=== PATIENT | female | born 1990 | race Caucasian/White ===

== ENCOUNTER 2017-02-05 14:34 | Emergency (ER) | payer SELFPAY ==
[2017-02-05 14:41] VITALS: BP 132/89
--- NOTE | 2017-02-05 14:51 | UC ---
Ear Complaint HPI - HPI Summary HPI Summary: 26 YEAR OLD FEMALE PRESENTS WITH COMPLAINS OF LEFT EAR PAIR. - History of Current Complaint Chief Complaint: UCEar Stated Complaint: LFT EAR PAIN/ORAL PAIN Time Seen by Provider: 02/05/17 14:51 Hx Obtained From: Patient Hx Last Menstrual Period: 01/31/17 Onset/Duration: Sudden Onset Severity Initially: Moderate Severity Currently: Moderate Pain Scale Used: 0-10 Numeric - 6 Alleviating Factors: Nothing Associated Signs/Symptoms: Positive: URI Symptoms Related History: Seasonal Allergies - Allergies/Home Medications Allergies/Adverse Reactions: Allergies Allergy/AdvReac Type Severity Reaction Status Date / Time No Known Allergies Allergy Verified 02/05/17 14:41 PMH/Surg Hx/FS Hx/Imm Hx Previously Healthy: Yes - Surgical History Surgical History: None - Family History Known Family History: Positive: Hypertension - Social History Alcohol Use: Rare Substance Use Type: None Smoking Status (MU): Heavy Every Day Tobacco Smoker Type: Cigarettes Amount Used/How Often: 1 ppd Length of Time of Smoking/Using Tobacco: 14 yr Have You Smoked in the Last Year: Yes Household Exposure Type: Cigarettes - Immunization History Most Recent Tetanus Shot: unknown Review of Systems Constitutional: Negative Skin: Negative Eyes: Negative ENT: Ear Ache Respiratory: Negative Cardiovascular: Negative Gastrointestinal: Negative Genitourinary: Negative Motor: Negative Neurovascular: Negative Musculoskeletal: Negative Neurological: Negative Psychological: Negative All Other Systems Reviewed And Are Negative: Yes Physical Exam Triage Information Reviewed: Yes Appearance: Well-Appearing Vital Signs: Initial Vital Signs Temp 37.6 C 02/05/17 14:36 Pulse 96 02/05/17 14:36 Resp 16 02/05/17 14:36 BP 132/89 02/05/17 14:36 Pulse Ox 100 02/05/17 14:36 Eye Exam: Normal Eyes: Positive: Conjunctiva Inflamed ENT Exam: Normal ENT: Positive: Other: - LEFT MIDDLE EAR MODERATE EFFUSION Dental Exam: Normal Neck exam: Normal Neck: Positive: 1 Respiratory Exam: Normal Cardiovascular Exam: Normal Abdominal Exam: Normal Musculoskeletal Exam: Normal Neurological Exam: Normal Psychological Exam: Normal Skin Exam: Normal Ear Complaint Course/Dx - Differential Dx/Diagnosis Provider Diagnoses: LEFT MIDDLE EFFUSION. LEFT EUSTACIAN TUBE DYSFUNCTION Discharge - Discharge Plan Condition: Stable Disposition: HOME Patient Education Materials: Sinusitis (ED), Earache (ED) Referrals: MAXWELL Arredondo [Primary Care Provider] -
== END 2017-02-05 15:31 | disposition home or self-care (01) ==
LOC: UCCORT 14:34
DX: H65.192 Other acute nonsuppurative otitis media, left ear (principal); H69.92 Unspecified Eustachian tube disorder, left ear
CPT/HCPCS: 99212; G0463

== ENCOUNTER 2017-07-28 09:40 | Emergency (ER) | payer OTHER ==
[2017-07-28 10:35] VITALS: BP 141/98
--- NOTE | 2017-07-28 12:38 | UC ---
Abdominal Pain Female HPI - HPI Summary HPI Summary: This is an otherwise healthy 26 yo female who presents with c/o abd pain and nausea. She has been symptomatic for several weeks. She has been nauseous nearly constantly and occasionally vomits. She has a burning sensation in her chest when laying flat. Her symptoms are worst after eating fatty foods. She uses NSAIDs freq and drinks excessive amounts of caffeine. No hematemesis or coffee ground emesis. She is not sexually active, no vaginal complaints. No associated diarrhea or fever. - History of Current Complaint Chief Complaint: UCAbdominalPain Stated Complaint: NAUSEA, VOMITING Hx Last Menstrual Period: now Pain Intensity: 6 Allergies/Adverse Reactions: Allergies Allergy/AdvReac Type Severity Reaction Status Date / Time No Known Allergies Allergy Verified 07/28/17 10:35 PMH/Surg Hx/FS Hx/Imm Hx Previously Healthy: Yes - Surgical History Surgical History: None - Family History Known Family History: Positive: Hypertension - Social History Alcohol Use: Rare Substance Use Type: None Smoking Status (MU): Heavy Every Day Tobacco Smoker Type: Cigarettes Amount Used/How Often: 1 ppd Length of Time of Smoking/Using Tobacco: 14 yr Have You Smoked in the Last Year: Yes Household Exposure Type: Cigarettes - Immunization History Most Recent Tetanus Shot: unknown Review of Systems Constitutional: Negative Skin: Negative Eyes: Negative ENT: Negative Respiratory: Negative Cardiovascular: Negative Gastrointestinal: Abdominal Pain, Vomiting, Nausea Genitourinary: Negative Motor: Negative Neurovascular: Negative Musculoskeletal: Negative Neurological: Negative Psychological: Negative Is Patient Immunocompromised?: No All Other Systems Reviewed And Are Negative: Yes Physical Exam Triage Information Reviewed: Yes Appearance: Well-Appearing Vital Signs: Initial Vital Signs Temp 98.2 F 07/28/17 10:30 Pulse 91 07/28/17 10:30 Resp 16 07/28/17 10:30 BP 141/98 07/28/17 10:30 Pulse Ox 100 07/28/17 10:30 Vital Signs Reviewed: Yes ENT Exam: Normal Dental Exam: Normal Neck exam: Normal Respiratory: Positive: Lungs clear. Negative: Crackles, Rhonchi, Wheezing Cardiovascular: Positive: RRR, No Murmur Abdomen Description: Positive: Soft, Other: - RUQ TTP. Negative: CVA Tenderness (R), CVA Tenderness (L), Distended Neurological: Positive: Alert Psychological Exam: Normal Skin Exam: Normal Abd Pain Female Course/Dx - Course Course Of Treatment: This is an otherwise healthy 26 yo female who presents with c/o abd pain and nausea. Symptoms may represent GERD/gastritis and/or gallbladder disease. Recommend use of an H2 deshawn for 2 weeks and if no improvement GB US. Patient will work to establish care with PCP in the area for further followup. - Differential Dx/Diagnosis Differential Diagnosis: Gall Bladder Disease, Peptic Ulcer Disease, Renal Colic Provider Diagnoses: 1. Abd pain/nausea - suspected gastritis Discharge - Discharge Plan Condition: Stable Disposition: HOME Prescriptions: raNITIdine HCl [Zantac] 150 mg PO BID #60 tablet Patient Education Materials: Gastroesophageal Reflux Disease (DC) Forms: *Work Release Referrals: No Primary Care Phys,NOPCP [Primary Care Provider] - Additional Instructions: Instructions: 1. Please take Zantac twice daily as prescribed 2. Establish with a PCP in the area for a gallbladder US and surgeon referral if your symptoms do not improve 3. Reduce your caffiene intake 4. Stop taking ibuprofen
== END 2017-07-28 12:34 | disposition home or self-care (01) ==
LOC: UCCORT 09:40
DX: R11.2 Nausea with vomiting, unspecified (principal); R10.9 Unspecified abdominal pain
CPT/HCPCS: 99212; G0463

== ENCOUNTER 2017-09-27 08:16 | Emergency (ER) | payer OTHER ==
[2017-09-27 08:34] VITALS: BP 134/84
--- NOTE | 2017-09-27 08:43 | UC ---
Eye Complaint HPI - HPI Summary HPI Summary: bilateral eye redness and discharge x 3 days getting worse today no eye pain , no photophobia, no change in vision - History of Current Complaint Chief Complaint: UCEye Stated Complaint: BILATERAL EYE COMPLAINT Time Seen by Provider: 09/27/17 08:29 Hx Obtained From: Patient Hx Last Menstrual Period: 09/14/17 Onset/Duration: Gradual Onset, Lasting Days - 3, Still Present Severity Initially: Moderate Severity Currently: Moderate Pain Intensity: 0 Location of Injury: Conjunctiva Aggravating Factor(s): Nothing Alleviating Factor(s): Nothing Associated Signs And Symptoms: Positive: Drainage (Purulent) - Allergies/Home Medications Allergies/Adverse Reactions: Allergies Allergy/AdvReac Type Severity Reaction Status Date / Time No Known Allergies Allergy Verified 09/27/17 08:31 PMH/Surg Hx/FS Hx/Imm Hx Previously Healthy: Yes - Surgical History Surgical History: None - Family History Known Family History: Positive: Hypertension - Social History Alcohol Use: None Substance Use Type: None Smoking Status (MU): Heavy Every Day Tobacco Smoker Type: Cigarettes Amount Used/How Often: 1 ppd Length of Time of Smoking/Using Tobacco: 14 yr Have You Smoked in the Last Year: Yes Household Exposure Type: Cigarettes - Immunization History Most Recent Tetanus Shot: unknown Review of Systems Constitutional: Negative Skin: Negative Eyes: Drainage, Eye Redness ENT: Negative Respiratory: Negative Cardiovascular: Negative Gastrointestinal: Negative Is Patient Immunocompromised?: No All Other Systems Reviewed And Are Negative: Yes Physical Exam Triage Information Reviewed: Yes Appearance: Well-Appearing, No Pain Distress, Well-Nourished Vital Signs: Initial Vital Signs Temp 98.3 F 09/27/17 08:29 Pulse 91 09/27/17 08:29 Resp 14 09/27/17 08:29 BP 134/84 09/27/17 08:29 Pulse Ox 100 09/27/17 08:29 Vital Signs Reviewed: Yes Eyes: Positive: Conjunctiva Inflamed. Negative: Discharge ENT: Positive: Normal ENT inspection, Hearing grossly normal, Pharynx normal Neck: Positive: Supple, Nontender, No Lymphadenopathy Respiratory: Positive: Chest non-tender, Lungs clear, Normal breath sounds, No respiratory distress Cardiovascular: Positive: RRR, No Murmur, Pulses Normal Skin Exam: Normal Eye Complaint Course/Dx - Differential Dx/Diagnosis Provider Diagnoses: conjunctivitis Discharge - Sign-Out/Discharge Documenting (check all that apply): Discharge/Admit/Transfer - Discharge Plan Condition: Stable Disposition: HOME Prescriptions: Sulfacetamide Sodium [Bleph-10] 1 drop OP Q6HR #1 bottle Patient Education Materials: Conjunctivitis (ED) Forms: *Work Release Referrals: No Primary Care Phys,NOPCP [Primary Care Provider] - If Needed - Billing Disposition and Condition Condition: STABLE Disposition: HOME
== END 2017-09-27 08:47 | disposition home or self-care (01) ==
LOC: UCCORT 08:16
DX: H10.9 Unspecified conjunctivitis (principal); F17.210 Nicotine dependence, cigarettes, uncomplicated
CPT/HCPCS: 99212; G0463

== ENCOUNTER 2018-03-08 09:26 | Emergency (ER) | payer MEDICAID, OTHER ==
[2018-03-08 10:07] VITALS: BP 127/88
--- NOTE | 2018-03-08 10:54 | UC ---
Dental HPI - HPI Summary HPI Summary: 27-year-old woman comes in with complaint of dental pain. Been going on for about 3 days. His left lower molar. She has an appointment with her dentist next week. The patient has been getting worse and she has not been able to sleep overnight. She didn't taking ibuprofen and Tylenol without relief. No fevers or chills. - History of Current Complaint Chief Complaint: UCDentalProblem Stated Complaint: DENTAL COMPLAINT Time Seen by Provider: 03/08/18 10:46 Hx Last Menstrual Period: 02/22/18 Pain Intensity: 10 - Allergies/Home Medications Allergies/Adverse Reactions: Allergies Allergy/AdvReac Type Severity Reaction Status Date / Time No Known Allergies Allergy Verified 03/08/18 10:03 Home Medications: Home Medications Acetaminophen [Tylenol Extra Strength] 2 tab PO Q6H PRN 03/08/18 [History Confirmed 03/08/18] Ibuprofen TAB* [Motrin TAB* 600 MG] 600 mg PO Q6H PRN 03/08/18 [History Confirmed 03/08/18] PMH/Surg Hx/FS Hx/Imm Hx - Additional Past Medical History Additional PMH: Patient gets colonoscopies every 5 years due to her father passing away from colon cancer Previously Healthy: Yes - Surgical History Surgical History: None - Family History Known Family History: Positive: Hypertension Family History: Her father from colon cancer - Social History Alcohol Use: None Substance Use Type: None Smoking Status (MU): Heavy Every Day Tobacco Smoker Type: Cigarettes Amount Used/How Often: 1 ppd Length of Time of Smoking/Using Tobacco: 14 yr Have You Smoked in the Last Year: Yes Household Exposure Type: Cigarettes - Immunization History Most Recent Tetanus Shot: unknown Review of Systems Constitutional: Negative Skin: Negative Eyes: Negative ENT: Dental Pain Respiratory: Negative Cardiovascular: Negative Gastrointestinal: Negative Motor: Negative Neurovascular: Negative Musculoskeletal: Negative Neurological: Negative Psychological: Negative Is Patient Immunocompromised?: No All Other Systems Reviewed And Are Negative: Yes Physical Exam Triage Information Reviewed: Yes Appearance: Well-Appearing, Well-Nourished, Pain Distress - MILD Vital Signs: Initial Vital Signs Temp 98 F 03/08/18 10:00 Pulse 101 03/08/18 10:00 Resp 18 03/08/18 10:00 BP 127/88 03/08/18 10:00 Pulse Ox 98 03/08/18 10:00 Vital Signs Reviewed: Yes Eye Exam: Normal Eyes: Positive: Conjunctiva Clear ENT: Positive: Pharynx normal Dental: Positive: Other: - Left lower molar is tender to palpation surrounding gingival swelling. Neck exam: Normal Neck: Positive: Supple Respiratory Exam: Normal Respiratory: Positive: Lungs clear, Normal breath sounds, No respiratory distress Cardiovascular Exam: Normal Cardiovascular: Positive: RRR Musculoskeletal Exam: Normal Musculoskeletal: Positive: Strength Intact, ROM Intact Neurological Exam: Normal Neurological: Positive: Alert Psychological Exam: Normal Psychological: Positive: Age Appropriate Behavior Skin Exam: Normal Dental Complaint Course/Dx - Differential Dx/Diagnosis Provider Diagnoses: DENTAL INFECTION AND PAIN Discharge - Sign-Out/Discharge Documenting (check all that apply): Patient Departure All imaging exams completed and their final reports reviewed: No Studies - Discharge Plan Condition: Stable Disposition: HOME Prescriptions: Clindamycin Cap(NF) [Clindamycin Cap 300 mg Cap(NF)] 300 mg PO TID #30 cap HYDROcodone/ACETAMIN 5-325 MG* [Carson 5-325 TAB*] 1 tab PO Q4H PRN #15 tab MDD 6 PRN Reason: Pain Patient Education Materials: Toothache (ED) Referrals: [facility] [place] [facility] [Outside] Additional Instructions: FOLLOW UP WITH YOUR DENTIST. GET RECHECKED FOR ANY WORSENING OF YOUR CONDITION OR QUESTIONS OR CONCERNS. - Billing Disposition and Condition Condition: STABLE Disposition: Home
== END 2018-03-08 10:58 | disposition home or self-care (01) ==
LOC: UCCORT 09:26
DX: K04.7 Periapical abscess without sinus (principal); F17.210 Nicotine dependence, cigarettes, uncomplicated
CPT/HCPCS: 99212; G0463

== ENCOUNTER 2018-05-10 18:06 | Emergency (ER) | payer MEDICAID, OTHER ==
--- OUTSIDE RECORDS SUMMARY | 2018-05-10 18:28 | XMS REPORT | Continuity of Care Document ---
:1990 External Reference #:[id number] Author Name Palomo Juarez M.D. Address [address] [facility] [address] [place] [address] Care Team Providers Name Role Phone Palomo Juarez M.D. Care Team Information C S S Representative Unavailable Payers Type Date Identification Numbers Payment Provider Subscriber Policy Number: [id number] Joceline Zambrano PayID: [id number] [address] [place] [address] Effective: 2018 Policy Number: Medicaid/[facility] Joceline Zambrano [id number] PayID: [id number] [address] [place] [address] Advance Directives Description No Information Available Problems Description No Information Family History Date Family Member(s) Problem(s) Comments General Cancer General Diabetes Father due to Colon Cancer () Mother Diabetes Children None Siblings 2 Grandchildren None Social History Type Date Description Comments Sex Unknown Marital Status Legal Status: Work Status Full-Time Employment ETOH Use Rarely consumes alcohol Tobacco Use Start: Unknown Heavy tobacco smoker (more than 10 cigarettes/day) Recreational Drug Use Never Used Drugs Allergies, Adverse Reactions, Alerts Description No Known Drug Allergies Medications Medication Date Status Form Strength Qnty SIG Indications Ordering Provider Trazodone HCL 04/19/20 Active Tablets 50mg 60tabs 1-2 tab G47.00 Larry 18 by mouth Palomo Lira, every M.D. night as needed F41.9 F33.9 Clindamycin HCL Active Capsules 150mg Unknown Ibuprofen Active Tablets 800mg Unknown Clindamycin HCL Active Capsules 300mg Take One Capsule Unknown By Mouth Three Times A Day Hydrocodone-Acetaminop Active Tablets 5-325mg Take One Tablet Unknown hen By Mouth Every 4 Hours as Needed For Pain Maximum Daily Dose Six Tablets Sulfacetamide Sodium Active Solution 10% Place One Drop Unknown In Affected Eyes Every 6 Hours Medications Administered in Office Medication Date Status Form Strength Qnty SIG Indications Ordering Provider Intradermal Administered Injection Mike Juarez 018 Palomo Lira M.D. Immunizations Description No Information Available Vital Signs Date Vital Result Comment 04/19/2018 2:02pm BP Systolic 144 mmHg BP Diastolic 68 mmHg Height 64 inches 5'4" Weight 237.00 lb BMI (Body Mass Index) 40.7 kg/m2 Heart Rate 78 /min Body Temperature 97.0 F Respiratory Rate 16 /min Results Description No Information Available Procedures Date Code Description Status 04/19/2018 36213 Visual Screening Test Completed 04/19/2018 21513 Audiometry, Bekesy, Screening Completed 04/06/2014 42616931 Colonoscopy Completed Encounters Type Date Location Provider Dx Diagnosis Office Visit 04/19/2018 [facility] Pal[facility] Juarez, Z00.01 Encounter for 2:45p M.D. general adult medical exam w abnormal findings L20.9 Atopic dermatitis, unspecified J30.9 Allergic rhinitis, unspecified E66.01 Morbid (severe) obesity due to excess calories M54.5 Low back pain H52.4 Presbyopia Z11.1 Encounter for screening for respiratory tuberculosis Z80.0 Family history of malignant neoplasm of digestive organs F41.9 Anxiety disorder, unspecified F33.9 Major depressive disorder, recurrent, unspecified G47.00 Insomnia, unspecified K21.0 Gastro-esophageal reflux disease with esophagitis K30 Functional dyspepsia G43.009 Migraine w/o aura, not intractable, w/o status migrainosus Plan of Treatment Future Appointment(s):04/21/2018 3:45 pm - Palomo Juarez M.D. at [facility] - Palomo Juarez M.D.Z00.01 Encounter for general adult medical examination with abnormal findingsComments:GOOD NUTRITION /EXERCISEDENTAL/ FLOSSING/ SELF CAREDROWNING/ SUN SAFETYSEAT BELT/ DRIVING SAFETYSPORT BIKE/ HELMET USESPORTS/ INJURY PREVENTIONVIOLENCE PREVENTION/ GUN SAFETYPARENTING ADVICE"SAFE AT HOME"SEX EDUCATION/ COUNSELINGBREAST/ TESTICULAR SELF EXAMEDUCATION GOALS/ ACTIVITIESLIMIT TV/ INTERNETUSETOBACCO/ ALCOHOL/ DRUGS/ INHALANTSPEER REFUSAL SKILLSSOCIAL INTERACTIONFAMILY FUNCTIONINGSELF CONTROLDEPRESSION/ ANXIETYNEXT APPOINTMENTYEARLY PHYSICAL WELLNESS EVALUATION F /U WITH OB /EXTENSION SUPERVISOR FOR PAPL20.9 Atopic dermatitis, unspecifiedComments:SKIN CARE INSTRUCTIONS LOTION OR BABY OIL 2-3 APPLICATION PER DAYUSE MOISTURIZING SOAPAVOID PROLONGED WATER EXPOSUREAVOID USING HOT WATER IN GAHJWKP31.9 Allergic rhinitis, unspecifiedComments:INCREASE PO FLUID USE ANTIHISTAMINE PRN SECOND HAND SMOKING TTEPAJMZLN03.01 Morbid (severe) obesity due to excess caloriesComments:WT LOSS COUNCELLINGEXERCISEDIET CTVANMINHAWA93.5 Low back painComments:EXERCISE/HEAT /MESSAGEAVOID HEAVY LIFTING WT LOSSTYLENOL OR MOTRIN PRNH52.4 PresbyopiaComments:USE GLASSES/CONTACTSF/U WITH ZZVLOMWIMLEZLN82.1 Encounter for screening for respiratory tuberculosisComments:F/U IN 48-72 H FOR READING PPDZ80.0 Family history of malignant neoplasm of digestive organsComments:OBSERVEF/U WITH GI LAST COLONOSCOPY 04/2014REPEAT IN 5 GOSBKI10.9 Anxiety disorder, unspecifiedNew Medication:Trazodone HCL 50 mg - 1- 2 tab by mouth every night as neededComments:COUNCELLING AND REASSURANCE RELAXATION TECHNIQUES DISCUSSEDCOUNSELED RE: STRESSORS IN LIFE AVOID ALLENERGY/ HIGH CAFFEINE JMJFEVQ38.9 Major depressive disorder, recurrent, unspecifiedNew Medication:Trazodone HCL 50 mg - 1-2 tab by mouth every night as neededComments: COUNCELLING AND REASSURANCE RELAXATION TECHNIQUES DISCUSSED COUNSELED RE: STRESSORS IN LIFEG47.00 Insomnia, unspecifiedNew Medication:Trazodone HCL 50 mg - 1-2 tab by mouth every night as neededComments:COUNCELLING AND REASSURANCE RELAXATION TECHNIQUES DISCUSSED COUNSELED RE: STRESSORS IN LIFE TYLENOLPM OR MOTRIN PM PRNK21.0 Gastro-esophageal reflux disease with esophagitisComments: AVOID CAFFEINE, ETOH AND SPICY FOODSTUMS OR MYLANTA PRN CALL WITH PROBLEMS OR [id number] Functional dyspepsiaComments:AVOID CAFFEINE, ETOH AND SPICY FOODSTUMS OR MYLANTA PRN CALL WITH PROBLEMS OR HZEXXVURS84.009 Migraine without aura, not intractable, without status migrainosusComments:TYLENOL OR MOTRIN PRNRELAXATION/AVOID STRESSORS
--- OUTSIDE RECORDS SUMMARY | 2018-05-10 18:28 | XMS REPORT | Continuity of Care Document ---
:1990 External Reference #:[id number] Author Name Palomo Juarez M.D. Address [address] [facility] [address] [place] [address] Care Team Providers Name Role Phone Palomo Juarez M.D. Care Team Information Fuel Manager Unavailable Payers Type Date Identification Numbers Payment Provider Subscriber Policy Number: [id number] [facility] Joceline Zambrano PayID: [id number] [address] [place] [address] Effective: 2018 Policy Number: Medicaid/[facility] Joceline Zambrano [id number] [employer] PayID: [id number] [address] [place] [address] Advance Directives Description No Information Available Problems [...] cigarettes/day) Recreational Drug Use Never Used Drugs Smoking Status Reviewed: 04/20/18 Heavy tobacco smoker (more than 10 cigarettes/day) Allergies, Adverse Reactions, Alerts Description No Known Drug Allergies Medications Medication Date Status Form Strength Qnty SIG Indications Ordering Provider Trazodone HCL 04/19/20 Active Tablets 50mg 60tabs 1-2 tab G47.00 Larry, 18 by mouth Palomo Lira, every M.D. [...] Ordering Provider Intradermal Administered Injection Mike Juarez M.D. Immunizations Description No Information Available Vital Signs Date Vital Result Comment 04/21/2018 11:14am BP Systolic 130 mmHg BP Diastolic 68 mmHg Height 64 inches 5'4" Weight 237.00 lb BMI (Body Mass Index) 40.7 kg/m2 Heart Rate 74 /min Respiratory Rate 16 /min 04/19/2018 2:02pm BP Systolic 144 mmHg BP Diastolic 68 mmHg Height 64 inches 5'4" Weight 237.00 lb BMI (Body Mass Index) 40.7 kg/m2 Heart Rate 78 /min Body Temperature 97.0 F Respiratory Rate 16 /min Results Description No Information Available Procedures Date Code Description Status 04/19/2018 04524 Visual Screening Test Completed 04/19/2018 21076 Audiometry, Bekesy, Screening Completed 04/06/2014 [id number] Colonoscopy Completed Encounters Type Date Location Provider Dx Diagnosis Office Visit 04/21/2018 Palomo Aj, L20.9 Atopic dermatitis, 11:45a M.D. unspecified J30.9 Allergic rhinitis, unspecified E66.01 Morbid (severe) obesity due to excess calories M54.5 Low back pain H52.4 Presbyopia Z80.0 Family history of malignant neoplasm of digestive organs F41.9 Anxiety disorder, unspecified F33.9 Major depressive disorder, recurrent, unspecified G47.00 Insomnia, unspecified K21.0 Gastro-esophageal reflux disease with esophagitis K30 Functional dyspepsia G43.009 Migraine w/o aura, not intractable, w/o status migrainosus Z11.1 Encounter for screening for respiratory tuberculosis Office Visit 04/19/2018 2:45p Palomo Aj, Z00.01 Encounter for general M.D. adult medical exam w abnormal findings L20.9 [...] intractable, w/o status migrainosus Plan of Treatment 04/21/2018 - Palomo Juarez M.D.L20.9 Atopic dermatitis, unspecifiedComments: SKIN CARE INSTRUCTIONS LOTION OR BABY OIL 2-3 APPLICATION PER DAYUSE MOISTURIZING SOAPAVOID PROLONGED WATER EXPOSUREAVOID USING HOT WATER IN HLUIEYV50.9 Allergic rhinitis, unspecifiedComments:INCREASE PO FLUID USE ANTIHISTAMINE PRN SECOND HAND SMOKING IQAQDPXANX76.01 Morbid (severe) obesity due to excess caloriesComments:WT LOSS COUNCELLINGEXERCISEDIET NTFJYJYYPGFH67.5 Low back painComments:EXERCISE/HEAT /MESSAGEAVOID HEAVY LIFTING WT LOSSTYLENOL OR MOTRIN PRNH52.4 PresbyopiaComments:USE GLASSES/CONTACTSF/U WITH DACFNDBCCBCQLG36.0 Family history of malignant neoplasm of digestive organsComments:OBSERVEF/U WITH GI LAST COLONOSCOPY 04/2014REPEAT IN 5 KRMTCR87.9 Anxiety disorder, unspecifiedComments:COUNCELLING AND REASSURANCE RELAXATION TECHNIQUES DISCUSSEDCOUNSELED RE: STRESSORS IN LIFE AVOID ALLENERGY/ HIGH CAFFEINE YQUPDCZ48.9 Major depressive disorder, recurrent, unspecifiedComments:COUNCELLING AND REASSURANCE RELAXATION TECHNIQUES DISCUSSED COUNSELED RE: STRESSORS IN LIFEG47.00 Insomnia, unspecifiedComments:COUNCELLING AND REASSURANCE RELAXATION TECHNIQUES DISCUSSED COUNSELED RE: STRESSORS IN LIFE TYLENOLPM OR MOTRIN PM PRNK21.0 Gastro-esophageal reflux disease with esophagitisComments:AVOID CAFFEINE, ETOH AND SPICY FOODSTUMS OR MYLANTA PRN CALL WITH PROBLEMS OR [id number] Functional dyspepsiaComments:AVOID CAFFEINE, ETOH AND SPICY FOODSTUMS OR MYLANTA PRN CALL WITH PROBLEMS OR MZGAQDXZT48.009 Migraine without aura, not intractable, without status migraComments:TYLENOL OR MOTRIN PRNRELAXATION/AVOID OYAQWIZBLD54.1 Encounter for screening for respiratory tuberculosisComments:PPD NEGATIVE
--- OUTSIDE RECORDS SUMMARY | 2018-05-10 18:28 | XMS REPORT | Continuity of Care Document ---
:1990 External Reference #:[id number] Author Name Jess Peres NP Address [address] [place] [id number] Care Team Providers Name Role Phone Palomo Juarez MD Primary Care Physician Unavailable Payers Type Date Identification Numbers Payment Provider Subscriber Effective: Policy Number: [id number] [facility] Joceline Zambrano 2018 PayID: [id number] [address] [place] [address] Effective: 2018 Policy Number: [id number] Medicaid -[place] Joceline Zambrano PayID: [id number] [address] [place] [address] Advance Directives Description No Information Available Problems Date Description Provider Status Onset: 02/26/2015 Smoker Toy Sheth NP Active Family History Date Family Member(s) Problem(s) Comments General Colon Cancer Father General Breast Cancer Maternal Aunt, due to breast cancer Father age 47, colon cancer Father Hypertension Mother Alive Mother Asthma Social History Type Date Description Comments Sex Female Education Highest level completed, 12th grade Marital Status 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 Not by a professional Sun Exposure Does not use sunscreen Currently Active Patient is currently not sexually active Last Andrew 1 year ago Condom Use Occasionally Contraceptive Methods Current methods include abstinence Age 1st Andrew 13 Years Old STD's HPV, High Risk 08/2010 UNKNOWN 05/02/2018 Never E-Cigarette user Allergies, Adverse Reactions, Alerts Description No Known Drug Allergies Medications Medication Date Status Form Strength Qnty SIG Indications Ordering Provider Trazodone HCL Active Unknown 000 Nuvaring Hx Ring 0.12-0.015m 3units insert 1 Z30.44 In Whan 017 - g/24HR ring MD Zion vaginally on 018 the then remove on the of the month; each month No Active Hx Unknown Medications 016 - 017 Nuvaring Hx Ring 0.12-0.015m 3units Insert One Jess M 016 - g/24HR Vaginal Ring Larisa Vaginally WHITE WASHER PILER 016 Every Month. Remove In 3 Weeks as Directed Nuvaring Hx Ring 0.12-0.015m 3units insert Z30.40 Toy 015 - g/24HR vaginally Sheth, WHITE WASHER PILER per 016 directions Nuvaring Hx Ring 0.12-0.015m 1units insert Toy 015 - g/24HR vaginally Sheth, WHITE WASHER PILER per 016 directions Immunizations Description No Information Available Vital Signs Date Vital Result Comment 05/02/2018 2:17pm BP Systolic 138 mmHg electronic BP Diastolic 92 mmHg electronic BP Systolic Recheck 130 mmHg manual BP Diastolic Recheck 86 mmHg manual Height 64 inches 5'4" Weight 237.00 lb BMI (Body Mass Index) 40.7 kg/m2 04/18/2017 9:33am BP Systolic 122 mmHg BP Diastolic 86 mmHg Height 64 inches 5'4" Weight 223.00 lb BMI (Body Mass Index) 38.3 kg/m2 03/11/2016 10:19am BP Systolic 120 mmHg BP Diastolic 80 mmHg Height 64 inches 5'4" Weight 207.00 lb BMI (Body Mass Index) 35.5 kg/m2 02/26/2015 10:22am BP Systolic 120 mmHg BP Diastolic 80 mmHg Height 64 inches 5'4" Weight 199.00 lb BMI (Body Mass Index) 34.2 kg/m2 Last Menstrual Period [id number] Results Test Date Facility Test Result H/L Range Note Urinalysis DIP 05/02/2018 [facility] Urine Leukocyte neg. Only.... Esterase QN Urine Nitrite QN neg. Urine Blood neg. Urine PH 6 Urine Protein Random neg. Urine Ketone Random neg. Urine Glucose QN Random neg. Wet Prep.... 05/02/2018 [facility] WBC Smear 0 Clue Cells Vag Fluid Wet Prep 0 Alina Wet Prep 0 Lactobacillus Wet Prep few Whiff Wet Prep neg. Bacteria Wet Prep n/a PH Wet Prep 4.5 Misc Other Test no trich seen Thinprep Pap Regulation Supervisor 03/11/2016 [facility] Results Neg/ + alina 1 W/RFX HPV Mrna E6/E7 Laboratory test finding 03/11/2016 [facility] HGB Blood.... 12.1 Urinalysis DIP Only.... 03/11/2016 [facility] Urine Leukocyte N Esterase QN Urine Nitrite QN N Urine Blood N Urine PH 5.0 Urine Protein Random N Urine Ketone Random N Urine Glucose QN Random N Laboratory test 03/11/2016 [facility] Test neg finding Urine..... Thinprep Pap Regulation Supervisor 02/26/2015 [facility] Results Negative 2 W/RFX HPV Mrna E6/E7 Laboratory test 02/26/2015 [facility] C.Trachomatis NOT DETECTED Not Detected 3 finding Rna,Tma W/RFX N.Gonorrhoeae Rna,Tma Wet Prep.... 02/26/2015 [facility] WBC Smear 5-6 Clue Cells Vag Fluid Wet Prep - Alina Wet Prep - Lactobacillus Wet Prep + Whiff Wet Prep _ Bacteria Wet Prep + PH Wet Prep 4.5 Misc Other Test _ Harpreet Annual Lab Set 02/26/2015 [facility] HGB Blood.... 13.1 Urinalysis DIP Only.... 02/26/2015 [facility] Urine Protein Random N Urine Glucose QN Random N 1 GYNECOLOGICAL CYTOLOGY REPORT Thinprep TIS PAP w/rfx to HPV E6/E7 REPORT STATUS: FINAL CLINICAL INFORMATION: Information not provided SLIDES / SOURCE: 1 / Information not provided STATEMENT OF ADEQUACY: Satisfactory for evaluation. Endocervical/transformation zone component present. INTERPRETATION/RESULT: Negative for intraepithelial lesion or malignancy. Fungal organisms morphologically consistent with Alina spp. COMMENT: This Pap test has been evaluated with computer assisted technology. NUMERICAL TOOL PROGRAMMER: UZMA BURKETT([facility]) For informational Purposes: All cytology specimens are processed and screened at [facility]. [address] [place] [address], UZMA HODGE([facility]) For informational Purposes: All cytology specimens are processed and screened at [facility]. [address] [place] [address] 2 GYNECOLOGICAL CYTOLOGY REPORT Thinprep TIS PAP w/rfx to HPV E6/E7 REPORT STATUS: FINAL CLINICAL INFORMATION: Information not provided LMP: [id number] SLIDES / SOURCE: 1 / Cervix, Endocervix STATEMENT OF ADEQUACY: Satisfactory for evaluation. Endocervical/transformation zone component present. INTERPRETATION/RESULT: Negative for intraepithelial lesion or malignancy. Reactive cellular changes associated with repair. COMMENT: This Pap test has been evaluated with computer assisted technology. NUMERICAL TOOL PROGRAMMER: UZMA ALEXANDRA([facility]) For informational Purposes: All cytology specimens are processed and screened at [email or web address] [address] [place] [address] PATHOLOGIST: Dinh Reyes MD, Board Certified in Anatomic Pathology and Cytopathology (electronic signature) For questions regarding this report call Anatomic Pathology at [phone] Dinh Reyes MD, Seat Cover Installer [employer] [place], [place] 3 This test was performed using the APTIMA COMBO2(R) Assay (GEN-PROBE(R). The analytical performance characteristics of this assay, when used to test SurePath(R) specimens have been determined by [employer]. Procedures Description No Information Available Encounters Description No Information Available Plan of Treatment 05/02/2018 - Jess Peres, [id number] Encounter for gynecological examination ( general) (routine)Comments:Reviewed healthy diet, exercise and safety with patient who states understanding.Counseled on Preventive , STI Awareness, Seat Belt Use, and Self Breast ExamFollow up:F/u in one year for annual. Sooner prn any concerns.Z30.09 Encounter for other general counseling and advice on contracComments:Patient plans to continue to abstain until her gets out of penitentiary and then wants to try to become . Advised her to quit tobacco and to abstain from alcohol and drugs.Z12.4 Encounter for screening for malignant neoplasm of cvjortT88.40 Encounter for surveillance of contraceptives, itkmyjskpowO89.0 Frequency of micturitionComments:Urine dip is negative. Send urine for cx. Advised patient to reduce caffeine and bladder irritants. Follow up if any further sx.A63.0 Anogenital (venereal) wartsComments :Refer to GI due to extensive nature of the condyloma and her strong family hx of colon/ rectal Ca.
[2018-05-10 19:44] VITALS: BP 138/84
--- NOTE | 2018-05-10 20:47 | UC ---
General HPI - HPI Summary HPI Summary: pt presents to the complaining of sore throat, ear ache and body aches. she states that it started on Tuesday. She denies any sick contacts. 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 - History of Current Complaint Chief Complaint: UCRespiratory Stated Complaint: FEVER,CHILLS,COUGH Hx Obtained From: Patient Hx Last Menstrual Period: 04/04/18 Onset/Duration: Gradual Onset, Lasting Days - 3 Onset Severity: Mild Current Severity: Mild Pain Intensity: 8 - Allergy/Home Medications Allergies/Adverse Reactions: Allergies Allergy/AdvReac Type Severity Reaction Status Date / Time No Known Allergies Allergy Verified 05/10/18 19:37 Home Medications: Home Medications traZODone TAB* [Desyrel TAB*] 50 mg PO BEDTIME 05/10/18 [History Confirmed 05/10] PMH/Surg Hx/FS Hx/Imm Hx Previously Healthy: Yes - Surgical History Surgical History: None - Family History Known Family History: Positive: Hypertension Family History: Her father from colon cancer - Social History Alcohol Use: None Substance Use Type: None Smoking Status (MU): Heavy Every Day Tobacco Smoker Type: Cigarettes Amount Used/How Often: 1/2 PPD Length of Time of Smoking/Using Tobacco: 14 yr Have You Smoked in the Last Year: Yes Household Exposure Type: Cigarettes - Immunization History Most Recent Tetanus Shot: unknown Review of Systems All Other Systems Reviewed And Are Negative: No Constitutional: Positive: Fever, Chills, Fatigue Skin: Positive: Negative Eyes: Positive: Negative ENT: Positive: Sore Throat, Ear Ache, Sinus Congestion Respiratory: Positive: Cough Cardiovascular: Positive: Negative Gastrointestinal: Positive: Negative Genitourinary: Negative: Hematuria, Frequency, Urgency Motor: Positive: Negative Neurovascular: Positive: Negative Musculoskeletal: Positive: Arthralgia Neurological: Positive: Headache Psychological: Positive: Negative Is Patient Immunocompromised?: No Physical Exam Triage Information Reviewed: Yes Appearance: Well-Appearing, No Pain Distress, Well-Nourished, Other: - pt looks fatigued Vital Signs: Initial Vital Signs Temp 99.9 F 05/10/18 19:39 Pulse 102 05/10/18 19:39 Resp 18 05/10/18 19:39 BP 138/84 05/10/18 19:39 Pulse Ox 100 05/10/18 19:39 Vital Signs Reviewed: Yes Eye Exam: Normal ENT Exam: Normal Neck: Positive: Tenderness @ - to general neck area, no lesions, no masses Respiratory: Positive: Chest non-tender, Lungs clear, Normal breath sounds Cardiovascular Exam: Normal Abdomen Description: Positive: Nontender, Soft Bowel Sounds: Positive: Present Musculoskeletal Exam: Normal Neurological Exam: Normal Psychological Exam: Normal Skin Exam: Normal Course/Dx - Course Course Of Treatment: cxr negative. influenza A/B negative. I discussed with pt the fact that she has a viral illness. I encouraged her to take tylenol and motrin for fever. pt encouraged to f/u with pcp and to keep up her fluids. - Diagnoses Provider Diagnosis: Viral illness Discharge - Sign-Out/Discharge Documenting (check all that apply): Patient Departure All imaging exams completed and their final reports reviewed: Yes - Discharge Plan Condition: Stable Disposition: HOME Patient Education Materials: Viral Syndrome (ED) Forms: *Work Release Referrals: Eduardo SAEED,Bryce Quintana [Primary Care Provider] - Additional Instructions: Take tylenol and motrin for pain, fever and body aches. go to the ED if worse. please follow up with your primary care physician. drink plenty of fluids. - Billing Disposition and Condition Condition: STABLE Disposition: Home
== END 2018-05-10 20:55 | disposition home or self-care (01) ==
LOC: UCCORT 18:06
DX: B34.9 Viral infection, unspecified (principal); F17.210 Nicotine dependence, cigarettes, uncomplicated
CPT/HCPCS: 71046; 99211; G0463

== ENCOUNTER 2018-07-20 07:17 | Emergency (ER) | payer OTHER ==
[2018-07-20] MEDS ORDERED: Acetaminophen TAB* 325 MG PO ONE (07:43)
[2018-07-20 07:56] VITALS: BP 129/98
--- NOTE | 2018-07-20 08:07 | ED ---
Head Injury - HPI Summary HPI Summary: Patient is a 27-year-old female presenting to the ED after head injury. She states she slipped and fell on the ice, falling backwards and hitting the back of her head. She endorses headache, denies any confusion, memory loss, visual changes. She also is endorsing a bruise/pain to just distal to the L elbow. Denies pain with ROM. Denies any pain with flexion and extension of the neck. She is otherwise healthy. Takes no medications. Patient states this happened just prior to work, was able to see the RN, however came to the ED for concern over concussion. - History Of Current Complaint Chief Complaint: EDHeadInjury Stated Complaint: FALL/HEAD INJURY Time Seen by Provider: 07/20/18 07:30 Hx Obtained From: Patient Hx Last Menstrual Period: 04/04/18 Mechanism Of Injury: Blunt Trauma Onset/Duration: Started Hours Ago Onset of Pain: Minutes Severity Currently: Mild Pain Intensity: 8 Pain Scale Used: 0-10 Numeric Location: Diffuse Aggravating Factor(s): Movement Alleviating Factor(s): Rest - Risk Factors SDH Risk Factor: Negative - Allergies/Home Medications Allergies/Adverse Reactions: Allergies Allergy/AdvReac Type Severity Reaction Status Date / Time No Known Allergies Allergy Verified 07/20/18 07:24 PMH/Surg Hx/FS Hx/Imm Hx Previously Healthy: Yes Endocrine/Hematology History: Denies: Hx Diabetes, Hx Thyroid Disease Cardiovascular History: Denies: Hx Hypertension Respiratory History: Denies: Hx Asthma - Immunization History Hx Pertussis Vaccination: No Immunizations Up to Date: Yes Infectious Disease History: No Infectious Disease History: Denies: Hx Hepatitis, Traveled Outside the [place] in Last 30 Days - Family History Known Family History: Positive: Hypertension Family History: Her father from colon cancer - Social History Occupation: Employed Full-time Lives: With Family Alcohol Use: None Hx Substance Use: No Substance Use Type: Reports: None Hx Tobacco Use: Yes Smoking Status (MU): Heavy Every Day Tobacco Smoker Type: Cigarettes Amount Used/How Often: 1/2 PPD Length of Time of Smoking/Using Tobacco: 14 yr Have You Smoked in the Last Year: Yes Review of Systems Constitutional: Negative Negative: Fever, Chills, Fatigue, Skin Diaphoresis Negative: Blurred Vision, Diplopia, Drainage Negative: Sore Throat, Ear Ache Negative: Palpitations, Chest Pain Genitourinary: Negative Positive: no symptoms reported, see HPI Negative: Arthralgia, Myalgia Positive: Bruising - just distal to the L elbow measuring 2cm diameter Positive: Headache All Other Systems Reviewed And Are Negative: Yes Physical Exam Triage Information Reviewed: Yes Vital Signs On Initial Exam: Initial Vitals Temp Pulse Resp BP Pulse Ox 96.9 F 95 17 136/96 97 07/20/18 07:20 07/20/18 07:20 07/20/18 07:20 07/20/18 07:20 07/20/18 07:20 Vital Signs Reviewed: Yes Appearance: Positive: Well-Appearing, Well-Nourished Skin: Positive: Warm, Skin Color Reflects Adequate Perfusion, Other - just distal to the L elbow measuring 2cm diameter Eyes: Positive: EOMI, ANGELINE, Conjunctiva Clear Neck: Positive: Supple, No Lymphadenopathy Respiratory/Lung Sounds: Positive: Clear to Auscultation, Breath Sounds Present Cardiovascular: Positive: RRR, Pulses are Symmetrical in both Upper and Lower Extremities Musculoskeletal: Positive: Normal, Strength/ROM Intact Neurological: Positive: Sensory/Motor Intact, Alert, Oriented to Person Place, Time, CN Intact II-III, Reflexes Intact, Speech Normal Psychiatric: Positive: Affect/Mood Appropriate AVPU Assessment: Alert Diagnostics - Vital Signs Vital Signs Temp Pulse Resp BP Pulse Ox 07/20/18 07:55 97.6 F 89 18 129/98 98 07/20/18 07:20 96.9 F 95 17 136/96 97 - Laboratory Lab Statement: Any lab studies that have been ordered have been reviewed, and results considered in the medical decision making process. Head Injury Course/Dx Course Of Treatment: during the course of treatment, the patient is evaluated for head injury. There are no signs of trauma. Neuro exam within normal limits. There is a small amount of ecchymosis just distal to the elbow. Patient has no issues with range of motion. She is given Tylenol. She is diagnosed with head injury. I do not feel at this time she has a concussion, however I have discussed brain rest if symptoms worsen. She understands to return to the ED if any symptoms become worse or change. - Diagnoses Differential Diagnosis/HQI/PQRI: Concussion Without LOC, Contusion Provider Diagnoses: Contusion, Head injury Discharge - Sign-Out/Discharge Documenting (check all that apply): Patient Departure Patient Received Moderate/Deep Sedation with Procedure: No - Discharge Plan Condition: Stable Disposition: HOME Patient Education Materials: Head Injury (ED) Referrals: Bryce Bob [Primary Care Provider] - Additional Instructions: As discussed, if you continue to have headaches, confusion or feel "off" - try to rest for the day Tylenol 650mg four times daily - but you may take the next dose 4 hours from now - do not exceed 3000mg daily Rest as needed - Billing Disposition and Condition Condition: STABLE Disposition: Home
== END 2018-07-20 07:57 | disposition home or self-care (01) ==
LOC: ED 07:17
DX: S09.90XA Unspecified injury of head, initial encounter (principal); S50.00XA Contusion of unspecified elbow, initial encounter; F17.210 Nicotine dependence, cigarettes, uncomplicated; W00.0XXA Fall on same level due to ice and snow, initial encounter; Y92.9 Unspecified place or not applicable
CPT/HCPCS: 99282; A9270-GY

== ENCOUNTER 2018-10-18 08:57 | Emergency (ER) | payer OTHER ==
[2018-10-18 09:33] VITALS: BP 140/89
--- NOTE | 2018-10-18 10:35 | UC ---
General HPI - HPI Summary HPI Summary: Here for right lower dental pain. Things tasted funny last night and woke up with pain. Has apt with Dentist on 10/23 but would not prescribe antibiotics over the phone for her. NO fever. Good PO. NO N/V. hx of dental caries and infections. MEds; reviewed - History of Current Complaint Chief Complaint: UCDentalProblem Stated Complaint: DENTAL CONCERN Time Seen by Provider: 10/18/18 10:16 Hx Last Menstrual Period: 09/25/18 Pain Intensity: 6 - Allergy/Home Medications Allergies/Adverse Reactions: Allergies Allergy/AdvReac Type Severity Reaction Status Date / Time No Known Allergies Allergy Verified 10/18/18 09:33 Home Medications: Home Medications Cetirizine HCl [Allergy Relief] 10 mg PO DAILY PRN 10/18/18 [History Confirmed 10/18/18] Pseudoephedrine HCl [Sudafed 24-Hour] 240 mg PO DAILY PRN 10/18/18 [History Confirmed 10/18/18] PMH/Surg Hx/FS Hx/Imm Hx Previously Healthy: Yes - Surgical History Surgical History: None - Family History Known Family History: Positive: Hypertension Family History: Her father from colon cancer - Social History Alcohol Use: None Substance Use Type: None Smoking Status (MU): Heavy Every Day Tobacco Smoker Type: Cigarettes Amount Used/How Often: 1/2 PPD Length of Time of Smoking/Using Tobacco: 14 yr Have You Smoked in the Last Year: Yes Household Exposure Type: Cigarettes - Immunization History Most Recent Tetanus Shot: unknown Review of Systems All Other Systems Reviewed And Are Negative: Yes Physical Exam Triage Information Reviewed: Yes Appearance: Well-Appearing Vital Signs: Initial Vital Signs Temp 97.9 F 10/18/18 09:23 Pulse 79 10/18/18 09:23 Resp 14 10/18/18 09:23 BP 140/89 10/18/18 09:23 Pulse Ox 100 10/18/18 09:23 Dental: Positive: Gross Decay/Caries @, Other: - dental tenderness in lower right molar area, mild erythema and edeam Neck: Positive: Supple, Nontender, Other: - mild right sided facial swelling Respiratory: Positive: Lungs clear, Normal breath sounds Cardiovascular: Positive: RRR, No Murmur Course/Dx - Course Course Of Treatment: This is a 28 yr old with 1 day of toothache Assessment Dental caries/?abscess Has apt with dentist on 10/23 Plan REcomend starting Amoxicillin as prescribed Follow up with dentist as scheduled - sooner if symptoms persist or worsen - Diagnoses Provider Diagnosis: Toothache Discharge - Sign-Out/Discharge Documenting (check all that apply): Patient Departure All imaging exams completed and their final reports reviewed: No Studies - Discharge Plan Condition: Good Disposition: HOME Prescriptions: Amoxicillin PO (*) [Amoxicillin 500 MG CAP*] 500 mg PO TID #21 cap Patient Education Materials: Toothache (ED) Referrals: No Primary Care Phys,NOPCP [Primary Care Provider] - Additional Instructions: REcomend starting Amoxicillin as prescribed Follow up with dentist as scheduled - sooner if symptoms persist or worsen - Billing Disposition and Condition Condition: GOOD Disposition: Home
== END 2018-10-18 10:36 | disposition home or self-care (01) ==
LOC: UCCORT 08:57
DX: K08.89 Other specified disorders of teeth and supporting structures (principal); F17.210 Nicotine dependence, cigarettes, uncomplicated; Z79.899 Other long term (current) drug therapy
CPT/HCPCS: 99212; G0463

== ENCOUNTER 2018-12-21 16:47 | Emergency (ER) | payer OTHER ==
[2018-12-21 16:55] VITALS: BP 124/86
--- NOTE | 2018-12-21 17:14 | UC ---
Dizzy HPI HPI Summary: Pt presents with c/o sudden onset of light headedness, BAUTISTA, generalized malaise that began today. 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 The pt states that she normally works day and evening shift but not nights.She states that after her overnight shift, she returned to work the next day for an evening shift and began to feel "sick" during the first hour of her shift. - History Of Current Complaint Chief Complaint: UCGeneralIllness Stated Complaint: LIGHT HEADED,SHAKEY Time Seen by Provider: 12/21/18 17:00 Hx Obtained From: Patient Hx Last Menstrual Period: 11/30/18 ?: No Onset/Duration: Sudden Onset, Still Present Timing: Constant Severity Initially: Moderate Severity Currently: Mild Pain Intensity: 6 Character: Lightheaded, Weak Aggravating Factor(s): Headache Alleviating Factor(s): Nothing Associated Signs And Symptoms: Positive: Nausea - Risk Factors Cardiac Risk Factors: Negative CVA Risk Factor: Negative - Allergies/Home Medications Allergies/Adverse Reactions: Allergies Allergy/AdvReac Type Severity Reaction Status Date / Time No Known Allergies Allergy Verified 12/21/18 16:55 Home Medications: Home Medications Aspirin/Acetaminophen/Caffeine [Excedrin Migraine Caplet] 1 tab PO ONCE [History Confirmed 12/21/18] PMH/Surg Hx/FS Hx/Imm Hx Previously Healthy: Yes - Surgical History Surgical History: None - Family History Known Family History: Positive: Hypertension Family History: Her father from colon cancer - Social History Occupation: Employed Full-time Lives: With Family Alcohol Use: None Substance Use Type: None Smoking Status (MU): Heavy Every Day Tobacco Smoker Type: Cigarettes Amount Used/How Often: 1 PPD Length of Time of Smoking/Using Tobacco: 14 yr Have You Smoked in the Last Year: Yes Household Exposure Type: Cigarettes - Immunization History Most Recent Tetanus Shot: unknown Review of Systems All Other Systems Reviewed And Are Negative: Yes Constitutional: Positive: Fatigue Skin: Positive: Negative Eyes: Positive: Negative ENT: Positive: Negative Respiratory: Positive: Negative Cardiovascular: Positive: Negative Gastrointestinal: Positive: Nausea Genitourinary: Positive: Negative Motor: Positive: Negative Neurovascular: Positive: Negative Musculoskeletal: Positive: Negative Neurological: Positive: Headache, Weakness Psychological: Positive: Negative Is Patient Immunocompromised?: No Physical Exam Triage Information Reviewed: Yes Appearance: Ill-Appearing, Other: - pale, fatigued Vital Signs: Initial Vital Signs Temp 98 F 12/21/18 16:48 Pulse 76 12/21/18 16:48 Resp 16 12/21/18 16:48 BP 124/86 12/21/18 16:48 Pulse Ox 100 12/21/18 16:48 Vital Signs Reviewed: Yes Eye Exam: Normal ENT Exam: Normal Dental Exam: Normal Neck exam: Normal Respiratory Exam: Normal Cardiovascular Exam: Normal Musculoskeletal Exam: Normal Neurological Exam: Normal Psychological Exam: Normal Skin Exam: Normal Dizzy Course/Dx - Differential Dx/Diagnosis Differential Diagnosis/HQI/PQRI: Other - fatigue, sleep disturbance Provider Diagnosis: Irregular sleep-wake rhythm, Fatigue Discharge - Sign-Out/Discharge Documenting (check all that apply): Patient Departure All imaging exams completed and their final reports reviewed: No Studies - Discharge Plan Condition: Stable Disposition: HOME Patient Education Materials: Fatigue (ED) Forms: *Work Release Referrals: [facility] [Outside] No Primary Care Phys,NOPCP [Primary Care Provider] - - Billing Disposition and Condition Condition: STABLE Disposition: Home
== END 2018-12-21 17:26 | disposition home or self-care (01) ==
LOC: UCCORT 16:47
DX: G47.23 Circadian rhythm sleep disorder, irregular sleep wake type (principal); R53.83 Other fatigue; F17.210 Nicotine dependence, cigarettes, uncomplicated
CPT/HCPCS: 99211; G0463

== ENCOUNTER 2019-04-09 17:41 | Emergency (ER) | payer BC, OTHER ==
[2019-04-09 18:40] VITALS: BP 140/68
--- NOTE | 2019-04-09 19:44 | ED ---
Neck Pain - HPI Summary HPI Summary: 28 yr old with the complaint of neck pain in the middle of the back of the neck , and down inbetween the shoulder blades. She has had numbness of first the right hand and now both hands. Today both hands felt numb for about 5 hours. Presently just alittle tingling. No hearing, speech, vision or gait trouble. No bowel or bladder incontinence. She has had symptoms for a couple of weeks, and they are made worse with lifting things. She has no other complaint. - History of Current Complaint Chief Complaint: UCGeneralIllness Stated Complaint: NECK PAIN,NUMBNESS IN HANDS Time Seen by Provider: 04/09/19 19:31 Hx Last Menstrual Period: 03/22/19 Pain Intensity: 9 - Allergies/Home Medications Allergies/Adverse Reactions: Allergies Allergy/AdvReac Type Severity Reaction Status Date / Time No Known Allergies Allergy Verified 04/09/19 18:31 Home Medications: Home Medications Acetaminophen TAB* [Tylenol TAB*] 1,000 mg BID PRN 04/09/19 [History Confirmed 04/09/19] PMH/Surg Hx/FS Hx/Imm Hx Endocrine/Hematology History: Denies: Hx Diabetes, Hx Thyroid Disease Cardiovascular History: Denies: Hx Hypertension Respiratory History: Denies: Hx Asthma Infectious Disease History: No Infectious Disease History: Denies: Hx Hepatitis, Traveled Outside the [place] in Last 30 Days - Family History Known Family History: Positive: Hypertension Family History: Her father from colon cancer - Social History Occupation: Employed Full-time Alcohol Use: None Hx Substance Use: No Substance Use Type: Reports: None Hx Tobacco Use: Yes Smoking Status (MU): Heavy Every Day Tobacco Smoker Type: Cigarettes Amount Used/How Often: 1/2 PPD Length of Time of Smoking/Using Tobacco: 14 yr Have You Smoked in the Last Year: Yes Review of Systems Constitutional: Negative Positive: Other - neck pain All Other Systems Reviewed And Are Negative: Yes Physical Exam Triage Information Reviewed: Yes Vital Signs On Initial Exam: Initial Vitals Temp Pulse Resp BP Pulse Ox 98 F 75 16 140/68 100 04/09/19 18:32 04/09/19 18:32 04/09/19 18:32 04/09/19 18:32 04/09/19 18:32 Vital Signs Reviewed: Yes Appearance: Positive: Well-Appearing, No Pain Distress Skin: Positive: Warm, Skin Color Reflects Adequate Perfusion Head/Face: Positive: Normal Head/Face Inspection Eyes: Positive: EOMI ENT: Positive: Normal ENT inspection Neck: Positive: Nontender Respiratory/Lung Sounds: Positive: Clear to Auscultation, Breath Sounds Present Cardiovascular: Positive: RRR. Negative: Murmur Abdomen Description: Negative: Distended Musculoskeletal: Positive: Strength/ROM Intact Neurological: Positive: Sensory/Motor Intact, Alert, Oriented to Person Place, Time, CN Intact II-III, Normal Gait, Speech Normal Psychiatric: Positive: Normal - [place] Coma Scale Best Eye Response: 4 - Spontaneous Best Motor Response: 6 - Obeys Commands Best Verbal Response: 5 - Oriented Coma Scale Total: 15 Diagnostics - Vital Signs Vital Signs Temp Pulse Resp BP Pulse Ox 04/09/19 18:32 98 F 75 16 140/68 100 - Laboratory Lab Statement: Any lab studies that have been ordered have been reviewed, and results considered in the medical decision making process. Neck Course/Dx - Course Course Of Treatment: 28 yr old with neck pain and bilateral hand numbness intermittent. She was offered ambulance transport to the hospital for further work up. She declined the ambulance. She will drive herself to the ER now for further work up. - Diagnoses Provider Diagnoses: Neck pain, Cervical radiculopathy Discharge ED - Sign-Out/Discharge Documenting (check all that apply): Patient Departure All imaging exams completed and their final reports reviewed: No Studies - Discharge Plan Condition: Good Disposition: HOME-RECOMMEND TO ED Patient Education Materials: Neck Pain (ED), Paresthesia (ED), Cervical Radiculopathy (ED), Hypertension (ED) Referrals: Palomo Juarez MD [Primary Care Provider] - Additional Instructions: YOU NEED TO GO TO THE ER NOW FOR FURTHER EVAULATION OF YOUR NECK PAIN AND HAND NUMBNESS> DO NOT DELAY GOING. YOU HAVE BEEN OFFERED AN AMBULANCE BUT STATE YOU WANT TO DRIVE YOURSELF> - Billing Disposition and Condition Condition: GOOD Disposition: Home-Recommend to ED
== END 2019-04-09 19:47 | disposition home health service (06) ==
LOC: UCCORT 17:41
DX: M54.12 Radiculopathy, cervical region (principal); M54.2 Cervicalgia; R20.0 Anesthesia of skin; F17.210 Nicotine dependence, cigarettes, uncomplicated
CPT/HCPCS: 99212; G0463